=== PATIENT | male | born 1980 | race Caucasian/White ===

== ENCOUNTER 2020-11-23 14:49 | Emergency (ER) | payer OTHER, SELFPAY ==
--- NOTE | ~2020-11-23 | XR_ITS ---
EXAMINATION: XR chest 2V EXAM DATE: 11/23/2020 15:38 INDICATION: COVID positive. Fever. TECHNIQUE: Frontal and lateral projections of the chest obtained and reviewed. There is no prior w[place] dy for comparison. FINDINGS: The lungs are clear. There are no pleural effusions. The cardiomediastinal silhouette is within normal limits. There is no pneumothorax suspected. The bones and soft tissues are unremarkab le. IMPRESSION: No acute cardiopulmonary findings. Reviewed, dictated and finalized at location A.
--- NOTE | 2020-11-23 15:12 | ED.URI ---
HPI - URI/Sore Throat General Chief Complaint: Upper Respiratory Infection Stated Complaint: SINUS INFECTION Source: patient and RN notes reviewed Limitations: no limitations History of Present Illness HPI Narrative: The patient, non-smoker/occ drinker, presents with fever and URI. Patient states he has about 1/2-week history since after working with a coworker who has bronchitis symptoms. Patient states he has chills, mild hoarseness, cough, congestion. No wheezing/sneezing, vomiting/diarrhea, rash, loss of taste/smell. Rapid antigen test for Covid is positive; patient advised to inform his family and coworkers. Related Data Allergies Allergy/AdvReac Type Severity Reaction Status Date / Time No Known Allergies Allergy Unverified 11/23/20 15:00 Review of Systems Review of Systems: Narrative: General/Constitutional: No weight loss, REPORTS fever Eyes: N0: Redness,discharge Ears/Nose/Throat: No: Epistaxis,ear discharge Respiratory: Denies: Hemoptysis Gastrointestinal: No Vomiting, Bleeding-rectal Skin: No Lumps, eruption Neurologic: No Focal Weakness,Sz Hematologic: Denies: Petechiae/Purpura Psychiatric: No: Suicida ideationl All Other Systems: Reviewed and Negative PMFSH Comments At time of signature, agree with nursing past medical, surgical, social and family history. There is no relevant family history pertinent to the presenting complaint Exam Narrative: Exam Narrative: General Appearance: Hoarse sl. febrile appearing, well nourished, Conjunctiva clear Ears: Auditory canal normal Nose: Rhinorrhea, Mucousal erythema Mouth/Throat: MM moist, Uvula midline, Pharyngeal erythema Neck: Supple, No adenopathy Respiratory: No respiratory distress, airway patent Cardiovascular: RRR, Musculoskeletal: Non tender, Normal strength Skin: Warm, Dry Neurological: A&O x3, Normal affect Course Vital Signs Vital signs: Vital Signs Temperature 101.2 F H 11/23/20 15:15 Pulse Rate 93 11/23/20 15:15 Respiratory Rate 16 11/23/20 15:15 Blood Pressure 132/81 11/23/20 15:15 Pulse Oximetry 97 11/23/20 15:15 Temperature 101.2 F H 11/23/20 15:15 Pulse Rate 93 11/23/20 15:15 Respiratory Rate 16 11/23/20 15:15 Blood Pressure 132/81 11/23/20 15:15 Pulse Oximetry 97 11/23/20 15:15 MDM - URI/Sore Throat Lab Data Labs: Lab Results 11/23/20 Range/Units 15:22 POC SARS CoV-2 Ag Positive (Negative) Discharge Plan Discharge Clinical Impression: COVID-19 Patient Disposition: Home, Self-Care Condition: Stable Instructions: COVID-19 (Coronavirus Disease 2019) (ED) Additional Instructions: When at pharmacy get daily aspirin, and vitamin supplements: vitamin D, B, C. Also consider pulse oximter Prescriptions: New ondansetron HCl [Zofran] 4 mg tablet 4 mg PO Q8H PRN (Reason: nausea and vomiting) Qty: 10 RF: 0 codeine-guaifenesin 10-100 mg/5 mL liquid 7.5 ml PO BID PRN (Reason: cold symptoms) Qty: 118 RF: 0 Follow-up/Referrals: Jyothi,Chase Newberry MD [Primary Care Provider] - Stand Alone Forms: Work/School Release IP
[2020-11-23 15:15] VITALS: BP 132/81; PULSE 93; RESP 16; TEMP 38.4; O2SAT 97
== END 2020-11-23 16:10 | disposition home or self-care (01) ==
PROVIDERS: Emergency Provider Emergency Medicine; PCP Family Medicine
DX: U07.1 COVID-19 (principal)
CPT/HCPCS: 71046; 87426; 99213; C9803; G0463